=== PATIENT | female | born 1985 | race Caucasian/White ===

== ENCOUNTER 2019-03-17 11:37 | Emergency (ER) | payer MEDICAID ==
[2019-03-17 12:57] LABS: BASOPHILS % (AUTO) 0.5 %; EOSINOPHILS # (AUTO) 0.1 10^3/uL (0.0-0.7); EOSINOPHILS % (AUTO) 1.8 %; HGB - HEMOGLOBIN 13.4 g/dL (12.0-16.0); LYMPHOCYTES # (AUTO) 1.9 10^3/uL (1.5-3.5); LYMPHOCYTES % (AUTO) 23.6 %; MEAN CORPUSCULAR HEMOGLOBIN 29.8 pg (27.0-31.0); MEAN CORPUSCULAR HGB CONC 32.4 g/dL (32.0-36.0); MEAN CORPUSCULAR VOLUME 91.8 fL (81.0-99.0); MEAN PLATELET VOLUME 9.7 fL (7.9-10.8); MONOCYTES # (AUTO) 0.5 10^3/uL (0.0-1.0); MONOCYTES % (AUTO) 6.1 %; NEUTROPHILS # (AUTO) 5.3 10^3/uL (1.5-6.6); NEUTROPHILS % (AUTO) 67.6 %; PLT - PLATELET COUNT 194 10^3/uL (130-450); RED CELL DISTRIBUTION WIDTH 13.2 % (12.0-15.0); WHITE BLOOD COUNT 7.8 x10^3/uL (4.8-10.8)
[2019-03-17 13:12] LABS: ALBUMIN 4.4 g/dL (3.2-5.5); ALBUMIN/GLOBULIN RATIO 1.2 (1.0-2.2); BILIRUBIN,TOTAL 1.2 mg/dL (0.2-1.0); CALCIUM 9.3 mg/dL (8.5-10.3); CREATININE 0.7 mg/dL (0.4-1.0)
--- NOTE | 2019-03-17 13:30 | ED Physician Documentation ---
PD HPI FEMALE - Stated complaint Stated Complaint: CRAMPING - Chief complaint Chief Complaint: Abd Pain - History obtained from History obtained from: Patient - History of Present Illness Timing - onset: How many months ago (2) Associated symptoms: Urinary frequency. No: Vaginal bleeding, Vaginal discharge OB-ENVIRONMENTAL SERVICES FLOOR TECH History: G (4), P (3) Recently seen: Not recently seen - Additional information Additional information: This is a 33-year-old woman with a history of PCOS who was in to see her OB in mid January over in [place] and she was diagnosed with ovarian cysts. She had a period after that visit and then thought that she was having some "cyst pain" with cramping over the past 2 months then she developed some nausea and started doing some dry heaving so she did a test about a week ago before she came here from [place]. She had some spotting at the beginning of this month. She complains of some urinary frequency no dysuria. She is 4 para 3. She is not currently taking any hormonal control. She reports she is currently homeless but is staying with her daughters father and his new . Review of Systems Constitutional: denies: Fever GI: reports: Abdominal Pain, Nausea, Vomiting (Dry heaving) : reports: Frequency. denies: Dysuria PD PAST MEDICAL HISTORY - Past Medical History Past Medical History: Yes Cardiovascular: None Respiratory: None Neuro: None Endocrine/Autoimmune: Type 2 diabetes GI: None ENVIRONMENTAL SERVICES FLOOR TECH: Ovarian cysts : None HEENT: None Psych: Anxiety, Bipolar disorder Musculoskeletal: Chronic back pain Derm: None - Past Surgical History Past Surgical History: Yes /ENVIRONMENTAL SERVICES FLOOR TECH: section, Dilation and currettage - Allergies Allergies/Adverse Reactions: Allergies Allergy/AdvReac Type Severity Reaction Status Date / Time bupropion [From Wellbutrin] Allergy Hallucinati Verified 03/17/19 11:48 ons - Social History Does the pt smoke?: Yes Smoking Status: Current some day smoker Does the pt drink ETOH?: Yes Does the pt have substance abuse?: Yes Substance Use and Type: Marijuana - Immunizations Immunizations are current?: No Immunizations: TDAP >10years/unknown - POLST Patient has POLST: No PD ED PE NORMAL - Vitals Vital signs reviewed: Yes - General General: Alert and oriented X 3, No acute distress, Well developed/nourished - HEENT HEENT: Atraumatic, PERRL, Other (No scleral icterus) - Respiratory Respiratory: No respiratory distress - Abdomen Abdomen: Soft, No organomegaly - Neuro Neuro: Alert and oriented X 3, reexaminer 2-12 intact, No motor deficit, No sensory deficit, Normal speech - Psych Psych: Normal mood, Normal affect Results - Vitals Vitals: Vital Signs - 24 hr 03/17/19 03/17/19 11:45 17:07 Temperature 36.6 C 36.8 C Heart Rate 73 59 L Respiratory 18 20 Rate Blood Pressure 137/71 H 113/51 L O2 Saturation 99 100 Oxygen O2 Source Room air - Labs Labs: Laboratory Tests 03/17/19 03/17/19 03/17/19 12:48 12:48 12:48 WBC 7.8 RBC 4.50 Hgb 13.4 Hct 41.3 MCV 91.8 MCH 29.8 MCHC 32.4 RDW 13.2 Plt Count 194 MPV 9.7 Neut # (Auto) 5.3 Lymph # (Auto) 1.9 [place] # (Auto) 0.5 Eos # (Auto) 0.1 Baso # (Auto) 0.0 Absolute Nucleated RBC 0.00 Nucleated RBC % 0.0 Sodium 139 Potassium 4.0 Chloride 105 Carbon Dioxide 25 Anion Gap 9.0 BUN 19 Creatinine 0.7 Estimated GFR (MDRD) 96 Glucose 68 L Calcium 9.3 Total Bilirubin 1.2 H AST 15 ALT 19 Alkaline Phosphatase 35 L Total Protein 8.0 Albumin 4.4 Globulin 3.6 Albumin/Globulin Ratio 1.2 Lipase 29 HCG, Quant 80198.00 Urine Color Urine Clarity Urine pH Ur Specific [place] Urine Protein Urine Glucose (UA) Urine Ketones Urine Occult Blood Urine Nitrite Urine Bilirubin Urine Urobilinogen Ur Leukocyte Esterase Urine RBC Urine WBC Ur Squamous Epith Cells Urine Bacteria Ur Microscopic Review Urine Culture Comments 03/17/19 14:53 WBC RBC Hgb Hct MCV MCH MCHC RDW Plt Count MPV Neut # (Auto) Lymph # (Auto) [place] # (Auto) Eos # (Auto) Baso # (Auto) Absolute Nucleated RBC Nucleated RBC % Sodium Potassium Chloride Carbon Dioxide Anion Gap BUN Creatinine Estimated GFR (MDRD) Glucose Calcium Total Bilirubin AST ALT Alkaline Phosphatase Total Protein Albumin Globulin Albumin/Globulin Ratio Lipase HCG, Quant Urine Color YELLOW Urine Clarity HAZY Urine pH 6.0 Ur Specific [place] 1.025 Urine Protein NEGATIVE Urine Glucose (UA) NEGATIVE Urine Ketones NEGATIVE Urine Occult Blood NEGATIVE Urine Nitrite NEGATIVE Urine Bilirubin NEGATIVE Urine Urobilinogen 0.2 (NORMAL) Ur Leukocyte Esterase TRACE H Urine RBC None Seen Urine WBC 0-3 Ur Squamous Epith Cells MOD Squamous H Urine Bacteria Few Ur Microscopic Review INDICATED Urine Culture Comments NOT INDICATED - Rads (name of study) pelvic u/s Radiology: See rad report PD MEDICAL DECISION MAKING - ED course Complexity details: reviewed results, d/w patient ED course: Ultrasound shows a 6-week 3-day viable intrauterine . Patient has not had any spotting and therefore blood typing was not done. [facility] is [facility]. Departure - Departure Disposition: Home, Self Care Clinical Impression: Cramping affecting , antepartum Condition: Good Instructions: ED Care Follow-Up: Catrina Flaherty MD [Provider Admit Priv/Credential] - Comments: Call and arrange for follow-up with [facility] for care. Your due date is November 09, 2019. Return to the emergency department if you have significant bleeding or increased abdominal pain. Discharge Date/Time: 03/17/19 17:09
[2019-03-17 15:03] LABS: BILIRUBIN,URINE NEGATIVE (NEGATIVE); GLUCOSE, URINE (UA) NEGATIVE (NEGATIVE); KETONES,URINE (UA) NEGATIVE (NEGATIVE); LEUKOCYTE ESTERASE, URINE TRACE (NEGATIVE); NITRITE,URINE NEGATIVE (NEGATIVE); OCCULT BLOOD,URINE NEGATIVE (NEGATIVE); PROTEIN,URINE NEGATIVE (NEGATIVE); UROBILINOGEN,URINE 0.2 (NORMAL) E.U./dL (NORMAL)
[2019-03-17 15:07] LABS: CLARITY,URINE HAZY (CLEAR)
[2019-03-17 15:19] LABS: BACTERIA,URINE Few /HPF (None Seen); RBC,URINE None Seen /HPF (0-5); SQUAMOUS EPITHELIAL CELL,UR MOD Squamous (<= Few)
--- NOTE | 2019-03-17 15:51 | Ultrasound Report ---
Reason: pelvic pain, Procedure Date: 03/17/2019 Accession Number: [id number] / [id number] Procedure: US - OB First Trimester CPT Code: Final Report FULL RESULT: EXAM: FIRST TRIMESTER OBSTETRIC ULTRASOUND (Less than 11 weeks) EXAM DATE: 03/17/2019 03:40 PM. CLINICAL HISTORY: Pelvic pain, . LMP: Unknown. COMPARISONS: None. TECHNIQUE: Transabdominal and transvaginal ultrasound examination with static image documentation. CLINICAL DATES: ASSESSMENT: Gestational Sac: Single intrauterine. Mean gestational sac diameter: 21 mm = 7 weeks 0 days. Embryo: CRL (crown-rump length) 4.6 mm = 6 weeks 1 day. Cardiac activity: 115 beats per minute. Yolk sac: 5.8 mm. Amniotic fluid: Not accurately assessed at this gestational age. Early placenta: Not visible at this gestational age. Other: Perigestational fluid collection measured at 0.4 x 0.5 x 0.8 cm. MATERNAL STRUCTURES: Uterus: Anteverted. Anterior fundal fibroid measuring 3.1 x 3.7 x 4.4 cm. Cervix: Closed. Right Ovary/Adnexa: The ovary measures 4.4 x 1.6 x 2.5 cm, volume 9.2 cc. Unremarkable. Left Ovary/Adnexa: The ovary measures 4.3 x 1.8 x 3.4 cm, volume 13.7 cc. Solid, vascular nodule measured at 2.2 x 1.9 x 1.8 cm. Free Fluid: None. Other: None. IMPRESSION: 1. Single viable intrauterine at EGA 6 weeks 1 day with LALIT 11/09/2019 based on crown-rump length, which is concordant with clinical dates. Small perigestational fluid collection. 2. Solid nodule suggested in the left ovary. RADIA
[2019-03-17 17:10] VITALS: BP 113/51
== END 2019-03-17 17:09 | disposition home or self-care (01) ==
LOC: ED 11:37
DX: O99.89 Other specified diseases and conditions complicating pregnancy, childbirth and the puerperium (principal); R10.9 Unspecified abdominal pain; O24.911 Unspecified diabetes mellitus in pregnancy, first trimester; F17.200 Nicotine dependence, unspecified, uncomplicated; Z59.0 Homelessness; Z3A.01 Less than 8 weeks gestation of pregnancy
CPT/HCPCS: 36415; 76801; 76817; 80053; 81001; 81003; 83690; 84702; 85025; 87086; 99283; 99284